=== PATIENT | male | born 1995 | race Caucasian/White ===

== ENCOUNTER 2020-12-04 13:31 | Emergency (ER) | payer OTHER, SELFPAY ==
--- NOTE | 2020-12-04 13:41 | DI.RAD.S_ITS ---
PROCEDURE: XR HIP W PEL IF DONE RT 2V INDICATIONS: 8 ft fall onto r hip, TECHNIQUE: AP pelvis with lateral view(s) of the right hip(s). COMPARISON: None. FINDINGS: Bones: No fractures or dislocations. Pelvic ring appears intact. No suspicious bony lesions. Mild periarticular osteophyte formation and joint space narrowing at the bilateral hip joints. Soft tissues: The visualized bowel gas pattern is normal. No suspicious soft tissue calcifications. IMPRESSION: Osteoarthritis. No acute fracture. No osseous lesion. If symptoms and/or clinical suspicion for pathology persist, further assessment with repeat, or advanced imaging (e.g., CT, MRI, or bone scan) may be helpful for further assessment. Dictated by: Karely Mendoza M.D. on 12/04/2020 at 12:55 Approved by: Karely Mendoza M.D. on 12/04/2020 at 12:55
[2020-12-04 13:42] VITALS: BP 163/94; PULSE 92; RESP 14; TEMP 36.4; O2SAT 100; BMI 27.1
--- NOTE | 2020-12-04 13:44 | ED_ITS ---
HPI - General Adult General Chief complaint: Extremity Injury, Lower Stated complaint: Right leg injury 12/02/20 Time Seen by Provider: 12/04/20 13:37 Source: patient Mode of arrival: Ambulatory Limitations: no limitations History of Present Illness HPI narrative: Patient is a 25-year-old male who a couple days ago was snowboarding and when off of a jump and landed on his right side. Stated that he hurt his right hip and right knee. He has been ambulatory since then but does get some ?clicking? in the right groin area. He does state that the large bruise on the outside of his right leg has improved somewhat but is still very tender to palpation. No prior injuries to the area. Has not tried anything for prior to arrival Related Data Allergies Allergy/AdvReac Type Severity Reaction Status Date / Time No Known Drug Allergies Allergy Verified 12/04/20 13:42 Review of Systems Constitutional Constitutional: Denies fatigue, Denies headache(s) and Denies weakness ENT Ears, Nose, Mouth, and Throat: Denies headache(s) Cardiovascular Cardiovascular: Denies chest pain and Denies dyspnea Respiratory Respiratory: Denies dyspnea Gastrointestinal Gastrointestinal: Denies abdominal pain Musculoskeletal Musculoskeletal: Denies tingling Comments: Right hip pain Integumentary/Breasts Comments: Large bruise to the right thigh and over the right knee Neurologic Neurologic: Denies behavioral changes, Denies headache(s), Denies tingling and Denies weakness Psychiatric Psychiatric: Denies behavioral changes Endocrine Endocrine: Denies fatigue Hematologic/Lymphatic On Anticoagulants: No Allergic/Immunologic Allergic/Immunologic: Denies urticaria Patient History Medical History Healthy adult Social History Smoking Status: Never smoker Exam Initial Vital Signs Initial Vital Signs: Vital Signs Temperature 97.5 F L 12/04/20 13:42 Pulse Rate 92 H 12/04/20 13:42 Respiratory Rate 14 12/04/20 13:42 Blood Pressure 163/94 H 12/04/20 13:42 Pulse Oximetry 100 12/04/20 13:42 Const General: cooperative and comfortable Limitations: mental status not altered HENMT Head: normal to inspection and normocephalic Resp Effort & Inspection: normal respiratory effort Cardio Rate: regular rate Skin Other: Patient with a very large ecchymotic area to the lateral aspect of the right thigh. It extends from the greater trochanter down to the distal 1/3 of the thigh. Also has a small bruise over the anterior aspect of the right knee. Neuro General: patient alert and patient awake Gait: normal gait Sensory Exam: no sensory deficits noted Extrem Other: Patient can flex and extend at the right ankle and of the right knee without any discomfort. He can do a straight leg raise. He can flex and extend the right hip every does have some discomfort in the area. His pelvis is stable to palpation. Psych Appearance: grossly normal and well kempt Course Orders Ordered: ED Orders 12/04/20 13:41 XR hip w pel if done RT 2V Stat Vital Signs Vital signs: Vital Signs - 8 hr 12/04/20 13:42 Temperature 97.5 F L Pulse Rate 92 H Respiratory Rate 14 Blood Pressure 163/94 H Pulse Oximetry 100 Medical Decision Making Imaging Data Extremity x-ray #1: Radiologist's Impression: [address] [id number] ReportSigned Patient: Curry GermanMR#: [id number]: 1995Acct:[id number]/Sex: 25 / MDate of Service: 12/04/20Loc: EDAccession Number: [id number] Procedure: XR hip w pel if done RT 2V Ordering Provider: Kris Connors D.O. PROCEDURE: XR HIP W PEL IF DONE RT 2V INDICATIONS: 8 ft fall onto r hip, TECHNIQUE: AP pelvis with lateral view(s) of the right hip(s). COMPARISON: None. FINDINGS: Bones: No fractures or dislocations. Pelvic ring appears intact. No suspicious bony lesions. Mild periarticular osteophyte formation and joint space narrowing at the bilateral hip joints. Soft tissues: The visualized bowel gas pattern is normal. No suspicious soft tissue calcifications. IMPRESSION: Osteoarthritis. No acute fracture. No osseous lesion. If symptoms and/or clinical suspicion for pathology persist, further assessment with repeat, or advanced imaging (e.g., CT, MRI, or bone scan) may be helpful for further assessment. Dictated by: Karely Mendoza M.D. on 12/04/2020 at 12:55 Approved by: Karely Mendoza M.D. on 12/04/2020 at 12:55 MDM Narrative Medical decision making narrative: X-rays show no signs of fractures. Patient can ambulate. We did discuss the clicking in his right groin area and potential for things such as labrum injuries. He also has a very large area of contusion/ecchymosis to his right thigh. Informed him that he should wait until the acute nature of his symptoms improved and if he is still having the mechanical symptoms in his right hip he should talk with his primary doctor about a referral to see Orthopedics. The patient expressed understanding and agreement plan. Discharge Plan Departure Patient Disposition: Home Clinical Impression: Contusion of right thigh Instructions: DI for Contusion Activity Restrictions/Additional Instructions: There were no fractures on the x-rays. The bruising on your right thigh will resolve on its own however given the size of it is going to take quite some time. If you continue to have the clicking in your right hip I recommend you talk with your medical department about a referral to see Orthopedics. Return to the emergency department for any new or worsening symptoms Stand Alone Forms: Work Release Note
[2020-12-04 14:28] VITALS: BP 155/82; PULSE 82; RESP 16; O2SAT 99
== END 2020-12-04 14:29 | disposition home or self-care (01) ==
PROVIDERS: Emergency Provider Emergency Medicine
DX: S70.01XA Contusion of right hip, initial encounter (principal); V00.311A Fall from snowboard, initial encounter
CPT/HCPCS: 73502; 99283

== ENCOUNTER 2021-08-29 13:09 | Emergency (ER) | payer OTHER, SELFPAY ==
[2021-08-29 13:40] VITALS: BP 160/85; PULSE 82; RESP 15; TEMP 36.8; O2SAT 99; BMI 25.7
--- NOTE | 2021-08-29 14:43 | ED.WOUNDLAC ---
HPI - Wound/Laceration General Chief Complaint: Wound/Laceration Stated Complaint: cut finger Time Seen by Provider: 08/29/21 14:30 Source: patient Mode of arrival: Ambulatory History of Present Illness HPI narrative: Patient is a 25-year-old male here for evaluation of a cut to his left hand. He cut it while trying to take the seed out of an avocado. He did wash it prior to arrival. Related Data Home Medications Medication Instructions Recorded Confirmed trazodone 50 mg tablet 50 mg PO BEDTIME 08/29/21 08/29/21 Allergies Allergy/AdvReac Type Severity Reaction Status Date / Time No Known Drug Allergies Allergy Verified 08/29/21 13:43 Review of Systems Musculoskeletal Comments: Cut to left hand Integumentary/Breasts Comments: Cut to left hand Neurologic Neurologic: Reports system reviewed and no additional complaints, except as documented Hematologic/Lymphatic On Anticoagulants: No Patient History Medical History Healthy adult Social History Smoking Status: Never smoker Smoking Status: Never smoker alcohol intake frequency: a few times a month Substance Use Type: does not use Exam Initial Vital Signs Initial Vital Signs: Vital Signs Temperature 98.2 F 08/29/21 13:40 Pulse Rate 82 08/29/21 13:40 Respiratory Rate 15 08/29/21 13:40 Blood Pressure 160/85 H 08/29/21 13:40 Pulse Oximetry 99 08/29/21 13:40 Cardio Pulses: radial pulses present on the left Skin Other: Patient with a 1 cm laceration on the volar aspect of his left hand just proximal to the MCP joint of the ring finger. There is no active bleeding. Procedures Laceration Repair Laceration 1: Site: hand Side (If applicable): left Size (cm): 1 Description: linear Depth: simple, single layer Pre-repair: wound explored, irrigated extensively and deep structures intact Skin layer closed with: nylon Size (cm): 5-0 Number of sutures: 1 Technique: simple, interrupted Course Vital Signs Vital signs: Vital Signs - 8 hr 08/29/21 13:40 Temperature 98.2 F Pulse Rate 82 Respiratory Rate 15 Blood Pressure 160/85 H Pulse Oximetry 99 MDM - Wound/Laceration MDM Narrative Medical decision making narrative: The wound was clean. Was closed as described above with 1 stitch without anesthesia. He was given care instructions and return precautions. He expressed understanding and agreement. Discharge Plan Departure Patient Disposition: Home Clinical Impression: Laceration Instructions: DI for Minor Laceration Activity Restrictions/Additional Instructions: You can wash your hands like normal in use open water like normal. This stitch should be removed in 7 days. You can use a topical antibiotic ointment. Return to the emergency department for any new or worsening symptoms Prescriptions: No Action trazodone 50 mg tablet 50 mg PO BEDTIME 0RF
--- NOTE | 2021-08-29 15:30 | PC.NURSE ---
one stitch in finger and steri strip done by Dr. Connors
== END 2021-08-29 15:32 | disposition home or self-care (01) ==
PROVIDERS: Emergency Provider Emergency Medicine
DX: S61.215A Laceration without foreign body of left ring finger without damage to nail, initial encounter (principal); W26.0XXA Contact with knife, initial encounter
CPT/HCPCS: 12001; 99282

== ENCOUNTER → 2021-09-13 10:57 | Outpatient (CLI) | payer OTHER, SELFPAY ==
--- NOTE | 2021-09-13 | DI.MRI.S_ITS ---
PROCEDURE: MR LUMBAR SPINE WO CON INDICATIONS: Low back pain, unspecified TECHNIQUE: Noncontrast sagittal T1 spin echo and T2 fast echo, sagittal STIR, axial T1 and T2 fast spin echo through the lumbar spine. In cases with scoliosis, additional coronal T2 fast spin echo may be performed. COMPARISON: [facility] [place], [place], XR LUMBAR SPINE WITH OLBIQUES PLUS FLEXION EXTENSION, 08/15/2021, 15:40. FINDINGS: Image quality: Excellent. Alignment and Curvature: Mild levoconvex scoliotic curvature is noted. Minimal retrolisthesis is seen at L5-S1. Bone Marrow: Marrow is of normal overall signal. No acute vertebral body compression fractures. Spinal Cord: Conus medullaris terminates at the L1 level. Visualized cord demonstrates normal signal and size. Paraspinous Soft Tissues: No paravertebral masses. T12-L1: Normal appearance. L1-L2: Normal appearance. L2-L3: Normal appearance. L3-L4: Normal appearance. L4-L5: The disc height and disk signal are well-preserved. Mild generalized disc bulge is seen. No significant neural foraminal or central canal narrowing can be seen. L5-S1: Mild loss of disc height is seen. Loss of disc signal is seen. Mild disc bulge is seen, with a central/left disc extrusion, with mild inferior migration of the disc material. Mass effect is seen upon the transiting left S1 nerve root. There is [id number] right-sided and moderate left-sided neural foraminal narrowing seen. Mild to moderate central canal narrowing is seen. IMPRESSION: There is a central/left disc extrusion seen at L5-S1, with mass effect upon the transiting left S1 nerve root. Dictated by: Trell Owens M.D. on 09/13/2021 at 11:15 Approved by: Trell Owens M.D. on 09/13/2021 at 11:23
== END ==
PROVIDERS: Referring Provider Physical Medicine & Rehabilitation Pain Medicine; Visit Provider Physical Medicine & Rehabilitation Pain Medicine
DX: M51.27 Other intervertebral disc displacement, lumbosacral region (principal)
CPT/HCPCS: 72148